=== PATIENT | female | born 1940 | race African-American/Black ===

== ENCOUNTER 2018-01-31 14:45 | Inpatient (IN) ==
[2018-01-31] MEDS ORDERED: ALBUTEROL/IPRATROPIUM 3 ML NEB RESP TX STA ×2 (16:09→17:36)
[2018-01-31] MEDS ORDERED: LEVOFLOXACIN INJ 750 MG in PREMIX 1 EACH IV STA (16:09)
[2018-01-31] MEDS ORDERED: methylPREDNISolone SOD SUC 125 MG/2 ML VIAL IV STA (16:09)
[2018-01-31] MEDS ORDERED: methylPREDNISolone SOD SUC 125 MG/2 ML VIAL ONE (16:50)
[2018-01-31] MEDS ORDERED: LEVOFLOXACIN INJ 150 ML IV ONE (16:50)
[2018-01-31 16:59] LABS: Basophils % 0.6 % (0.0-0.8); Eosinophils % 0.2 % (0.00-10.9); Hematocrit 37.8 VOL% (35.7-47.0); Hemoglobin 12.7 GM/DL (12.0-16.0); Immature Granulocytes % 0.3 %; Immature Granulocytes Absolute 0.02 #; Lymphocytes # 0.7 10*3/uL (1.4-4.0); Lymphocytes % 10.2 % (21.3-54.2); Mean Corpuscular HGB Conc 33.6 GM/DL (32-36); Mean Corpuscular Hemoglobin 30 PG (27-34); Mean Corpuscular Volume 89.4 FL (87-102); Mean Platelet Volume 9.8 FL (9.6-12.0); Monocytes # 0.3 10*3/uL (0.11-0.8); Neutrophils # 5.5 10*3/uL (1.4-7.4); Neutrophils % 83.7 % (38.7-73.9); Platelet Count 279 T/CUMM (130-400); Red Blood Count 4.23 MC/CUMM (3.8-5.5); Red Cell Distribution Width 15.9 % (9.3-17.3); White Blood Count 6.6 T/CUMM (4-12)
[2018-01-31 17:08] LABS: PT Patient Result 10.2 SECS; Partial Thromboplastin Time 26.4 SECS (0-40)
[2018-01-31 17:22] LABS: Alanine Aminotransferase 24 U/L (13-56); Albumin 3.7 G/DL (3.4-5.0); Alkaline Phosphatase 72 U/L (45-117); Aspartate Amino Transferase 23 U/L (0-37); Blood Urea Nitrogen 11 MG/DL (7-18); Calcium 9.6 MG/DL (8.5-10.1); Glucose 119 MG/DL (74-106); Osmolality,Calculated 274.7 MOS/KG (273-304); Potassium 3.9 MMOL/L (3.5-5.1); Sodium 138 MMOL/L (136-145); Total Protein 7.1 G/DL (6.4-8.3); Troponin I Only < 0.015 NG/ML (0.00-0.045)
[2018-01-31] MEDS: ALBUTEROL/IPRATROPIUM 3 ML NEB RESP TX SCH (20:12)
[2018-01-31] MEDS: ENOXAPARIN 40 MG/0.4 ML SYRINGE SUBCUT SCH (22:38)
[2018-01-31 23:36] LABS: Apearance,Urine CLEAR (Clear); Bilirubin,Urine Negative (Negative); Blood, Urine Negative (Negative); Glucose,Urine (UA) Negative (Negative); Ketones,Urine Negative (Negative); Mucus,Urine Occasional /LPF (Occasional); Nitrite,Urine Negative (Negative); Protein,Urine Negative; RBC,Urine <1 /HPF (0-4); Squamous Epithelial Cell,Urine Occasional /HPF (0-10); Urine Color Yellow (Yellow); Urine Specific Gravity 1.011 (1.001-1.035); Urine Urobilinogen < 2.0 EU/DL (0.2-1.0); WBC,Urine 2 /HPF (0-6)
[2018-01-31] MEDS: methylPREDNISolone SOD SUC 40 MG/1 ML VIAL IV SCH (23:44)
[2018-02-01] MEDS: ALBUTEROL/IPRATROPIUM 3 ML NEB RESP TX SCH ×4 (00:41→20:01)
[2018-02-01 04:35] LABS: Barbiturates Screen,Urine Negative (Negative); Benzodiazepines Screen,Urine Negative (Negative); Cannabinoid Screen,Urine Negative (Negative); Opiate Screen,Urine Positive (Negative); Phencyclidine Screen,Urine Negative (Negative)
[2018-02-01 07:04] LABS: Basophils % 0.2 % (0.0-0.8); Hematocrit 36.5 VOL% (35.7-47.0); Immature Granulocytes % 0.5 %; Immature Granulocytes Absolute 0.03 #; Lymphocytes # 0.6 10*3/uL (1.4-4.0); Lymphocytes % 9.5 % (21.3-54.2); Mean Corpuscular HGB Conc 32.9 GM/DL (32-36); Mean Corpuscular Hemoglobin 29 PG (27-34); Mean Corpuscular Volume 89.2 FL (87-102); Mean Platelet Volume 9.9 FL (9.6-12.0); Monocytes # 0.2 10*3/uL (0.11-0.8); Monocytes % 2.6 % (1.7-12.7); Neutrophils # 5.8 10*3/uL (1.4-7.4); Neutrophils % 87.2 % (38.7-73.9); Platelet Count 278 T/CUMM (130-400); Red Blood Count 4.09 MC/CUMM (3.8-5.5); Red Cell Distribution Width 15.7 % (9.3-17.3); White Blood Count 6.7 T/CUMM (4-12)
[2018-02-01 07:31] LABS: Calcium 9.2 MG/DL (8.5-10.1); Osmolality,Calculated 280.7 MOS/KG (273-304); Potassium 4.5 MMOL/L (3.5-5.1)
[2018-02-01] MEDS: NICOTINE 21 MG/24 HR PATCH TRANSDERM SCH (08:44)
[2018-02-01] MEDS: CALCIUM (CARBONATE) 500 MG TABLET PO SCH (08:44)
[2018-02-01] MEDS: MULTIVITAMIN (CENTRUM) TABLET PO SCH (08:44)
[2018-02-01] MEDS: LISINOPRIL 20 MG TABLET PO SCH (08:44)
[2018-02-01] MEDS: LETROZOLE 2.5 MG TABLET PO SCH (08:44)
[2018-02-01] MEDS: ASPIRIN EC 81 MG TABLET PO SCH (08:44)
[2018-02-01] MEDS: methylPREDNISolone SOD SUC 40 MG/1 ML VIAL IV SCH ×3 (08:45→23:49)
[2018-02-01] MEDS: amLODIPine 5 MG TABLET PO SCH (08:47)
[2018-02-01] MEDS ORDERED: LEVOFLOXACIN INJ 750 MG in PREMIX 1 EACH IV SCH (17:00)
[2018-02-01] MEDS: ENOXAPARIN 40 MG/0.4 ML SYRINGE SUBCUT SCH (21:49)
[2018-02-01] MEDS: POLYETHYLENE GLYCOL POWDER 17 GM PACK PO SCH (21:49)
[2018-02-02] MEDS: ALBUTEROL/IPRATROPIUM 3 ML NEB RESP TX SCH ×2 (01:12→07:58)
[2018-02-02 07:44] VITALS: BP 119/72
[2018-02-02] MEDS: POLYETHYLENE GLYCOL POWDER 17 GM PACK PO SCH (08:09)
[2018-02-02] MEDS: NICOTINE 21 MG/24 HR PATCH TRANSDERM SCH (08:09)
[2018-02-02] MEDS: methylPREDNISolone SOD SUC 40 MG/1 ML VIAL IV SCH (08:09)
[2018-02-02] MEDS: MULTIVITAMIN (CENTRUM) TABLET PO SCH (08:10)
[2018-02-02] MEDS: ASPIRIN EC 81 MG TABLET PO SCH (08:10)
[2018-02-02] MEDS: amLODIPine 5 MG TABLET PO SCH (08:10)
[2018-02-02] MEDS: CALCIUM (CARBONATE) 500 MG TABLET PO SCH (08:10)
[2018-02-02] MEDS: LETROZOLE 2.5 MG TABLET PO SCH (08:10)
[2018-02-02] MEDS: LISINOPRIL 20 MG TABLET PO SCH (08:10)
== END 2018-02-02 12:10 | disposition home or self-care (01) | DRG 190 ==
LOC: N.ED 14:45 → N.EDINP 20:02 → N.5E 20:41
PROVIDERS: ADMIT Internal Medicine; ATTEND Internal Medicine

== ENCOUNTER 2019-04-02 21:06 | Inpatient (IN) ==
[2019-04-02] MEDS ORDERED: methylPREDNISolone SOD SUC 125 MG/2 ML VIAL IV STA (22:31)
[2019-04-02] MEDS ORDERED: ALBUTEROL/IPRATROPIUM 3 ML NEB RESP TX STA (22:31)
[2019-04-02] MEDS ORDERED: cefTRIAXone 1,000 MG in SODIUM CHLORIDE 0.9% 100 ML IV STA (22:47)
[2019-04-02] MEDS ORDERED: AZITHROMYCIN INJ 500 MG in SODIUM CHLORIDE 0.9% 250 ML IV STA (22:48)
[2019-04-02 23:20] LABS: Basophils # 0.1 10*3/uL (0.0-0.2); Basophils % 1.2 % (0.0-0.8); Eosinophils % 0.6 % (0.00-10.9); Hematocrit 40.9 VOL% (35.7-47.0); Hemoglobin 12.9 GM/DL (12.0-16.0); Immature Granulocytes % 0.4 %; Immature Granulocytes Absolute 0.02 #; Lymphocytes # 1.1 10*3/uL (1.4-4.0); Lymphocytes % 20.3 % (21.3-54.2); Mean Corpuscular HGB Conc 31.5 GM/DL (32-36); Mean Corpuscular Volume 87.2 FL (87-102); Mean Platelet Volume 9.4 FL (9.6-12.0); Neutrophils % 67.5 % (38.7-73.9); Platelet Count 313 T/CUMM (130-400); Red Blood Count 4.69 MC/CUMM (3.8-5.5); Red Cell Distribution Width 15.3 % (9.3-17.3); White Blood Count 5.2 T/CUMM (4-12)
[2019-04-02 23:47] LABS: Bilirubin,Total 0.8 MG/DL (0.2-1.0); Calcium 9.6 MG/DL (8.5-10.1); Osmolality,Calculated 270.1 MOS/KG (273-304); Total Protein 7.6 G/DL (6.4-8.3)
[2019-04-03] MEDS ORDERED: ALBUTEROL 2.5 MG/3 ML NEB RESP TX PRN (01:47)
[2019-04-03] MEDS ORDERED: ONDANSETRON 4 MG/2 ML VIAL IV PRN (01:51)
[2019-04-03] MEDS ORDERED: ACETAMINOPHEN 325 MG TABLET PO PRN (01:51)
[2019-04-03] MEDS ORDERED: POLYETHYLENE GLYCOL POWDER 17 GM PACK PO PRN (04:39)
[2019-04-03 07:01] LABS: Basophils % 0.5 % (0.0-0.8); Hematocrit 39.1 VOL% (35.7-47.0); Hemoglobin 12.6 GM/DL (12.0-16.0); Immature Granulocytes % 0.2 %; Immature Granulocytes Absolute 0.01 #; Lymphocytes # 0.3 10*3/uL (1.4-4.0); Lymphocytes % 7.3 % (21.3-54.2); Mean Corpuscular HGB Conc 32.2 GM/DL (32-36); Mean Corpuscular Volume 86.7 FL (87-102); Mean Platelet Volume 9.7 FL (9.6-12.0); Monocytes % 1.2 % (1.7-12.7); Neutrophils % 90.8 % (38.7-73.9); Platelet Count 312 T/CUMM (130-400); Red Blood Count 4.51 MC/CUMM (3.8-5.5); Red Cell Distribution Width 15.3 % (9.3-17.3); White Blood Count 4.1 T/CUMM (4-12)
[2019-04-03 07:21] LABS: Lymphocytes 6 % (20-55); Segmented Neutrophils 93 % (50-85); Total Cells Counted 100
[2019-04-03 07:22] LABS: Hypochromasia 1+; Platelet Estimate Adequate
[2019-04-03 07:27] LABS: Calcium 8.9 MG/DL (8.5-10.1); Osmolality,Calculated 278.8 MOS/KG (273-304)
[2019-04-03] MEDS: ALBUTEROL/IPRATROPIUM 3 ML NEB RESP TX SCH ×3 (07:38→19:00)
[2019-04-03] MEDS: NICOTINE 21 MG/24 HR PATCH TRANSDERM SCH (09:43)
[2019-04-03] MEDS: DOCUSATE SODIUM 100 MG CAPSULE PO PRN (09:44)
[2019-04-03] MEDS: methylPREDNISolone SOD SUC 40 MG/1 ML VIAL IV SCH ×2 (12:38→23:01)
[2019-04-03] MEDS: cefTRIAXone 1,000 MG in SYRINGE 1 EACH IV SCH (22:58)
[2019-04-04] MEDS ORDERED: AZITHROMYCIN INJ 500 MG in SODIUM CHLORIDE 0.9% 250 ML IV SCH
[2019-04-04] MEDS: ALBUTEROL/IPRATROPIUM 3 ML NEB RESP TX SCH ×4 (00:10→18:53)
[2019-04-04 05:19] LABS: Basophils % 0.1 % (0.0-0.8); Hematocrit 33.3 VOL% (35.7-47.0); Hemoglobin 10.9 GM/DL (12.0-16.0); Immature Granulocytes % 0.4 %; Immature Granulocytes Absolute 0.03 #; Lymphocytes # 0.4 10*3/uL (1.4-4.0); Lymphocytes % 4.6 % (21.3-54.2); Mean Corpuscular HGB Conc 32.7 GM/DL (32-36); Mean Corpuscular Volume 86.7 FL (87-102); Mean Platelet Volume 9.9 FL (9.6-12.0); Monocytes % 2.5 % (1.7-12.7); Neutrophils % 92.4 % (38.7-73.9); Platelet Count 283 T/CUMM (130-400); Red Blood Count 3.84 MC/CUMM (3.8-5.5); Red Cell Distribution Width 15.4 % (9.3-17.3); White Blood Count 8.1 T/CUMM (4-12)
[2019-04-04 05:46] LABS: Calcium 8.7 MG/DL (8.5-10.1); Osmolality,Calculated 284.8 MOS/KG (273-304)
[2019-04-04 05:47] LABS: Lymphocytes 3 % (20-55); Platelet Estimate Normal; Segmented Neutrophils 94 % (50-85); Total Cells Counted 100
[2019-04-04] MEDS: NICOTINE 21 MG/24 HR PATCH TRANSDERM SCH (09:00)
[2019-04-04] MEDS: LINACLOTIDE 145 MCG CAPSULE PO SCH (09:01)
[2019-04-04] MEDS ORDERED: DEXTROSE 50% 25 GM/50 ML VIAL IV PRN (10:22)
[2019-04-04] MEDS ORDERED: GLUCAGON 1 MG VIAL IM PRN (10:22)
[2019-04-04] MEDS: PANTOPRAZOLE 40 MG TABLET PO SCH (10:51)
[2019-04-04] MEDS: LISINOPRIL 20 MG TABLET PO SCH (10:51)
[2019-04-04] MEDS: amLODIPine 5 MG TABLET PO SCH (10:51)
[2019-04-04] MEDS: LETROZOLE 2.5 MG TABLET PO SCH (10:51)
[2019-04-04] MEDS: methylPREDNISolone SOD SUC 40 MG/1 ML VIAL IV SCH ×2 (10:51→22:52)
[2019-04-04] MEDS: SODIUM CHLORIDE 0.9% 1,000 ML IV SCH (10:55)
[2019-04-04] MEDS: INSULIN REGULAR 100 UNIT/ML SUBCUT SCH ×3 (12:11→21:49)
[2019-04-04] MEDS: cefTRIAXone 1,000 MG in SYRINGE 1 EACH IV SCH (21:47)
[2019-04-04] MEDS: AZITHROMYCIN 250 MG TABLET PO SCH (21:48)
[2019-04-05] MEDS: ALBUTEROL/IPRATROPIUM 3 ML NEB RESP TX SCH ×4 (00:40→19:11)
[2019-04-05] MEDS: SODIUM CHLORIDE 0.9% 1,000 ML IV SCH (04:34)
[2019-04-05] MEDS ORDERED: ASPIRIN EC 81 MG TABLET PO SCH (09:00)
[2019-04-05] MEDS: MULTIVITAMIN (CENTRUM) TABLET PO SCH (09:04)
[2019-04-05] MEDS: LETROZOLE 2.5 MG TABLET PO SCH (09:04)
[2019-04-05] MEDS: PANTOPRAZOLE 40 MG TABLET PO SCH (09:04)
[2019-04-05] MEDS: NICOTINE 21 MG/24 HR PATCH TRANSDERM SCH (09:04)
[2019-04-05] MEDS: LISINOPRIL 20 MG TABLET PO SCH (09:04)
[2019-04-05] MEDS: amLODIPine 5 MG TABLET PO SCH (09:04)
[2019-04-05] MEDS: DOCUSATE SODIUM 100 MG CAPSULE PO PRN ×2 (09:04→22:01)
[2019-04-05] MEDS: LINACLOTIDE 145 MCG CAPSULE PO SCH (09:05)
[2019-04-05] MEDS: INSULIN REGULAR 100 UNIT/ML SUBCUT SCH ×4 (09:05→22:01)
[2019-04-05] MEDS: methylPREDNISolone SOD SUC 40 MG/1 ML VIAL IV SCH ×2 (10:08→17:01)
[2019-04-05] MEDS: DORNASE ALFA 2.5 MG/2.5 ML VIAL RESP TX SCH ×2 (10:21→19:11)
[2019-04-05] MEDS: AZITHROMYCIN 250 MG TABLET PO SCH (22:01)
[2019-04-05] MEDS: cefTRIAXone 1,000 MG in SYRINGE 1 EACH IV SCH (22:01)
[2019-04-06] MEDS: ALBUTEROL/IPRATROPIUM 3 ML NEB RESP TX SCH ×6 (00:21→23:50)
[2019-04-06] MEDS: methylPREDNISolone SOD SUC 40 MG/1 ML VIAL IV SCH ×3 (01:21→16:31)
[2019-04-06] MEDS: SODIUM CHLORIDE 0.9% 1,000 ML IV SCH ×3 (01:21→21:00)
[2019-04-06] MEDS: DORNASE ALFA 2.5 MG/2.5 ML VIAL RESP TX SCH ×3 (07:36→19:10)
[2019-04-06] MEDS: INSULIN REGULAR 100 UNIT/ML SUBCUT SCH ×4 (08:16→22:09)
[2019-04-06] MEDS: NICOTINE 21 MG/24 HR PATCH TRANSDERM SCH (09:08)
[2019-04-06] MEDS: LETROZOLE 2.5 MG TABLET PO SCH (09:08)
[2019-04-06] MEDS: LISINOPRIL 20 MG TABLET PO SCH (09:08)
[2019-04-06] MEDS: PANTOPRAZOLE 40 MG TABLET PO SCH (09:08)
[2019-04-06] MEDS: LINACLOTIDE 145 MCG CAPSULE PO SCH (09:08)
[2019-04-06] MEDS: MULTIVITAMIN (CENTRUM) TABLET PO SCH (09:08)
[2019-04-06] MEDS: amLODIPine 5 MG TABLET PO SCH (09:09)
[2019-04-06] MEDS: AZITHROMYCIN 250 MG TABLET PO SCH (22:06)
[2019-04-06] MEDS: DOCUSATE SODIUM 100 MG CAPSULE PO PRN (22:07)
[2019-04-06] MEDS: cefTRIAXone 1,000 MG in SYRINGE 1 EACH IV SCH (23:00)
[2019-04-07] MEDS: methylPREDNISolone SOD SUC 40 MG/1 ML VIAL IV SCH ×3 (00:55→18:08)
[2019-04-07] MEDS: ALBUTEROL/IPRATROPIUM 3 ML NEB RESP TX SCH ×3 (07:25→19:30)
[2019-04-07] MEDS: DORNASE ALFA 2.5 MG/2.5 ML VIAL RESP TX SCH ×2 (07:29→19:35)
[2019-04-07] MEDS: amLODIPine 5 MG TABLET PO SCH (09:03)
[2019-04-07] MEDS: NICOTINE 21 MG/24 HR PATCH TRANSDERM SCH (09:03)
[2019-04-07] MEDS: LISINOPRIL 20 MG TABLET PO SCH (09:03)
[2019-04-07] MEDS: MULTIVITAMIN (CENTRUM) TABLET PO SCH (09:03)
[2019-04-07] MEDS: LETROZOLE 2.5 MG TABLET PO SCH (09:03)
[2019-04-07] MEDS: INSULIN REGULAR 100 UNIT/ML SUBCUT SCH ×4 (09:04→21:45)
[2019-04-07] MEDS: PANTOPRAZOLE 40 MG TABLET PO SCH (09:04)
[2019-04-07] MEDS: LINACLOTIDE 145 MCG CAPSULE PO SCH (09:04)
[2019-04-07] MEDS: SODIUM CHLORIDE 0.9% 1,000 ML IV SCH (19:05)
[2019-04-07] MEDS: AZITHROMYCIN 250 MG TABLET PO SCH (21:45)
[2019-04-07] MEDS: cefTRIAXone 1,000 MG in SYRINGE 1 EACH IV SCH (21:46)
[2019-04-08] MEDS: ALBUTEROL/IPRATROPIUM 3 ML NEB RESP TX SCH ×4 (00:25→19:25)
[2019-04-08] MEDS: methylPREDNISolone SOD SUC 40 MG/1 ML VIAL IV SCH ×2 (01:15→10:20)
[2019-04-08] MEDS: LINACLOTIDE 145 MCG CAPSULE PO SCH (06:34)
[2019-04-08] MEDS: DORNASE ALFA 2.5 MG/2.5 ML VIAL RESP TX SCH ×2 (07:38→19:35)
[2019-04-08] MEDS: INSULIN REGULAR 100 UNIT/ML SUBCUT SCH ×4 (10:18→22:03)
[2019-04-08] MEDS: amLODIPine 5 MG TABLET PO SCH (10:18)
[2019-04-08] MEDS: tiZANidine 4 MG TABLET PO PRN (10:18)
[2019-04-08] MEDS: LETROZOLE 2.5 MG TABLET PO SCH (10:18)
[2019-04-08] MEDS: NICOTINE 21 MG/24 HR PATCH TRANSDERM SCH (10:19)
[2019-04-08] MEDS: LISINOPRIL 20 MG TABLET PO SCH (10:20)
[2019-04-08] MEDS: MULTIVITAMIN (CENTRUM) TABLET PO SCH (10:20)
[2019-04-08] MEDS: PANTOPRAZOLE 40 MG TABLET PO SCH (10:25)
[2019-04-08] MEDS: predniSONE 20 MG TABLET PO SCH (12:22)
[2019-04-08] MEDS: AZITHROMYCIN 250 MG TABLET PO SCH (22:02)
[2019-04-08] MEDS: cefTRIAXone 1,000 MG in SYRINGE 1 EACH IV SCH (22:23)
[2019-04-09] MEDS: ALBUTEROL/IPRATROPIUM 3 ML NEB RESP TX SCH ×2 (00:27→07:44)
[2019-04-09] MEDS: INSULIN REGULAR 100 UNIT/ML SUBCUT SCH ×2 (07:41→10:48)
[2019-04-09] MEDS: DORNASE ALFA 2.5 MG/2.5 ML VIAL RESP TX SCH (07:50)
[2019-04-09] MEDS: MULTIVITAMIN (CENTRUM) TABLET PO SCH (08:05)
[2019-04-09] MEDS: tiZANidine 4 MG TABLET PO PRN (08:05)
[2019-04-09] MEDS: LISINOPRIL 20 MG TABLET PO SCH (08:05)
[2019-04-09] MEDS: predniSONE 20 MG TABLET PO SCH (08:05)
[2019-04-09] MEDS: LETROZOLE 2.5 MG TABLET PO SCH (08:05)
[2019-04-09] MEDS: amLODIPine 5 MG TABLET PO SCH (08:05)
[2019-04-09] MEDS: NICOTINE 21 MG/24 HR PATCH TRANSDERM SCH (08:05)
[2019-04-09] MEDS: PANTOPRAZOLE 40 MG TABLET PO SCH (08:05)
[2019-04-09] MEDS: LINACLOTIDE 145 MCG CAPSULE PO SCH (08:08)
[2019-04-09 08:11] VITALS: BP 155/89
== END 2019-04-09 13:30 | disposition home health service (06) | DRG 194 ==
LOC: N.ED 21:06 → SUATTDRO 04-03 01:43 → N.EDINP 04-03 01:43 → N.5E 04-03 03:07
PROVIDERS: ADMIT Internal Medicine; ATTEND Internal Medicine

== ENCOUNTER 2019-05-26 11:39 | Inpatient (IN) ==
[2019-05-26] MEDS ORDERED: ONDANSETRON 4 MG/2 ML VIAL IV STA (12:15)
[2019-05-26] MEDS ORDERED: OXYMETAZOLINE 0.05% NASAL SPRAY 15 ML BOTTLE ONE (12:33)
[2019-05-26 12:46] LABS: Eosinophils # 0.1 10*3/uL (0.0-0.87); Eosinophils % 1.7 % (0.00-10.9); Hematocrit 35.6 VOL% (35.7-47.0); Hemoglobin 10.9 GM/DL (12.0-16.0); Lymphocytes # 0.7 10*3/uL (1.4-4.0); Lymphocytes % 15.9 % (21.3-54.2); Mean Corpuscular HGB Conc 30.6 GM/DL (32-36); Mean Corpuscular Volume 90.4 FL (87-102); Mean Platelet Volume 9.7 FL (9.6-12.0); Monocytes % 9.9 % (1.7-12.7); Neutrophils % 71.5 % (38.7-73.9); Platelet Count 268 T/CUMM (130-400); Red Blood Count 3.94 MC/CUMM (3.8-5.5); Red Cell Distribution Width 15.2 % (9.3-17.3); White Blood Count 4.2 T/CUMM (4-12)
[2019-05-26 12:54] LABS: PT Patient Result 10.7 SECS
[2019-05-26] MEDS ORDERED: methylPREDNISolone SOD SUC 125 MG/2 ML VIAL IV STA (13:04)
[2019-05-26] MEDS ORDERED: ALBUTEROL NEB SOLN 5 MG/ML 20 ML/BOTTLE CONT NEB STA (13:04)
[2019-05-26] MEDS ORDERED: MEROPENEM 1,000 MG in SODIUM CHLORIDE 0.9% 100 ML IV STA (13:04)
[2019-05-26] MEDS ORDERED: MEROPENEM 1,000 MG VIAL IV ONE (13:12)
[2019-05-26 13:18] LABS: Alanine Aminotransferase 16 U/L (13-56); Albumin 3.7 G/DL (3.4-5.0); Alkaline Phosphatase 108 U/L (45-117); Amylase 61 U/L (25-115); Aspartate Amino Transferase 17 U/L (0-37); Blood Urea Nitrogen 11 MG/DL (7-18); Calcium 9.4 MG/DL (8.5-10.1); Glucose 89 MG/DL (74-106); Osmolality,Calculated 276.4 MOS/KG (273-304); Total Protein 7.4 G/DL (6.4-8.3); Troponin I < 0.015 NG/ML (0.00-0.045)
[2019-05-26] MEDS ORDERED: ONDANSETRON 4 MG/2 ML VIAL IV PRN (14:13)
[2019-05-26] MEDS ORDERED: traZODone 50 MG TABLET PO PRN (14:13)
[2019-05-26] MEDS ORDERED: ACETAMINOPHEN 325 MG TABLET PO PRN (14:13)
[2019-05-26] MEDS ORDERED: ALBUTEROL/IPRATROPIUM 3 ML NEB RESP TX PRN (14:18)
[2019-05-26] MEDS ORDERED: ENOXAPARIN 40 MG/0.4 ML SYRINGE SUBCUT SCH (14:30)
[2019-05-26] MEDS: cefTRIAXone 1,000 MG in SYRINGE 1 EACH IV SCH (16:36)
[2019-05-26] MEDS: AZITHROMYCIN INJ 250 MG in SODIUM CHLORIDE 0.9% 250 ML IV SCH (19:20)
[2019-05-26 19:41] LABS: Apearance,Urine CLEAR (Clear); Bilirubin,Urine Negative (Negative); Blood, Urine Negative (Negative); Glucose,Urine (UA) >=500 mg/dL (Negative); Hyaline Casts,Urine 1 /LPF (0-3); Ketones,Urine 5 mg/dL (Negative); Nitrite,Urine Negative (Negative); Protein,Urine Negative; Squamous Epithelial Cell,Urine Occasional /HPF (0-10); Urine Color Yellow (Yellow); Urine Urobilinogen < 2.0 EU/DL (0.2-1.0); WBC,Urine 8 /HPF (0-6)
[2019-05-26] MEDS: ALBUTEROL/IPRATROPIUM 3 ML NEB RESP TX SCH (21:00)
[2019-05-27] MEDS: ALBUTEROL/IPRATROPIUM 3 ML NEB RESP TX SCH ×4 (01:03→19:46)
[2019-05-27 02:50] LABS: Basophils % 0.2 % (0.0-0.8); Hematocrit 31.1 VOL% (35.7-47.0); Hemoglobin 9.6 GM/DL (12.0-16.0); Immature Granulocytes % 0.2 %; Immature Granulocytes Absolute 0.01 #; Lymphocytes # 0.6 10*3/uL (1.4-4.0); Lymphocytes % 11.3 % (21.3-54.2); Mean Corpuscular HGB Conc 30.9 GM/DL (32-36); Mean Corpuscular Volume 89.1 FL (87-102); Mean Platelet Volume 10.1 FL (9.6-12.0); Monocytes % 8.8 % (1.7-12.7); Neutrophils % 79.5 % (38.7-73.9); Platelet Count 246 T/CUMM (130-400); Red Blood Count 3.49 MC/CUMM (3.8-5.5); Red Cell Distribution Width 15.1 % (9.3-17.3); White Blood Count 5.1 T/CUMM (4-12)
[2019-05-27 03:05] LABS: Calcium 8.9 MG/DL (8.5-10.1); Osmolality,Calculated 285.4 MOS/KG (273-304)
[2019-05-27] MEDS: POLYETHYLENE GLYCOL POWDER 17 GM PACK PO SCH (10:20)
[2019-05-27] MEDS: ASPIRIN EC 81 MG TABLET PO SCH (10:21)
[2019-05-27] MEDS: predniSONE 20 MG TABLET PO SCH (10:21)
[2019-05-27] MEDS: PANTOPRAZOLE 40 MG TABLET PO SCH (10:22)
[2019-05-27] MEDS: LETROZOLE 2.5 MG TABLET PO SCH (10:22)
[2019-05-27] MEDS: MULTIVITAMIN (CENTRUM) TABLET PO SCH (10:22)
[2019-05-27] MEDS: cefTRIAXone 1,000 MG in SYRINGE 1 EACH IV SCH (16:21)
[2019-05-27] MEDS: AZITHROMYCIN INJ 250 MG in SODIUM CHLORIDE 0.9% 250 ML IV SCH (16:21)
[2019-05-28] MEDS: ALBUTEROL/IPRATROPIUM 3 ML NEB RESP TX SCH ×4 (01:21→19:47)
[2019-05-28 09:30] LABS: Amylase,Body Fluid 22 U/L; Glucose,Pleural Fluid 116 MG/DL; LDH,Body Fluid 136 U/L; Total Protein,Body Fluid 3.5 G/DL; Triglycerides,Body Fluid < 14 MG/DL
[2019-05-28 09:34] LABS: Lymphocytes,Pleural Fluid 86 %; Monocytes,Pleural Fluid 6 %; Neutrophils,Pleural Fluid 8 %; RBC,Pleural Fluid 2728 T/CUMM
[2019-05-28] MEDS: predniSONE 20 MG TABLET PO SCH (09:58)
[2019-05-28] MEDS: ASPIRIN EC 81 MG TABLET PO SCH (09:58)
[2019-05-28] MEDS: MULTIVITAMIN (CENTRUM) TABLET PO SCH (09:58)
[2019-05-28] MEDS: PANTOPRAZOLE 40 MG TABLET PO SCH (09:59)
[2019-05-28] MEDS: LACTULOSE 20 GM/30 ML UDCUP PO PRN (09:59)
[2019-05-28] MEDS: DOCUSATE SODIUM 100 MG CAPSULE PO PRN (09:59)
[2019-05-28] MEDS: LETROZOLE 2.5 MG TABLET PO SCH (09:59)
[2019-05-28] MEDS: POLYETHYLENE GLYCOL POWDER 17 GM PACK PO SCH (10:00)
[2019-05-28] MEDS: cefTRIAXone 1,000 MG in SYRINGE 1 EACH IV SCH (16:21)
[2019-05-28] MEDS: AZITHROMYCIN INJ 250 MG in SODIUM CHLORIDE 0.9% 250 ML IV SCH (16:21)
[2019-05-29] MEDS: LACTULOSE 20 GM/30 ML UDCUP PO SCH ×4 (00:42→20:08)
[2019-05-29] MEDS: ALBUTEROL/IPRATROPIUM 3 ML NEB RESP TX SCH ×4 (01:13→20:04)
[2019-05-29 04:50] LABS: Basophils % 0.6 % (0.0-0.8); Eosinophils % 0.3 % (0.00-10.9); Hematocrit 31.2 VOL% (35.7-47.0); Hemoglobin 9.5 GM/DL (12.0-16.0); Immature Granulocytes % 0.4 %; Immature Granulocytes Absolute 0.03 #; Lymphocytes # 1.2 10*3/uL (1.4-4.0); Lymphocytes % 16.1 % (21.3-54.2); Mean Corpuscular HGB Conc 30.4 GM/DL (32-36); Mean Corpuscular Volume 90.2 FL (87-102); Mean Platelet Volume 10.5 FL (9.6-12.0); Monocytes % 10.1 % (1.7-12.7); Neutrophils % 72.5 % (38.7-73.9); Platelet Count 258 T/CUMM (130-400); Red Blood Count 3.46 MC/CUMM (3.8-5.5); Red Cell Distribution Width 14.9 % (9.3-17.3); White Blood Count 7.3 T/CUMM (4-12)
[2019-05-29 05:16] LABS: Calcium 8.8 MG/DL (8.5-10.1); Osmolality,Calculated 280.4 MOS/KG (273-304)
[2019-05-29] MEDS: ASPIRIN EC 81 MG TABLET PO SCH (10:12)
[2019-05-29] MEDS: LACTULOSE 20 GM/30 ML UDCUP PO PRN (10:12)
[2019-05-29] MEDS: PANTOPRAZOLE 40 MG TABLET PO SCH (10:12)
[2019-05-29] MEDS: MULTIVITAMIN (CENTRUM) TABLET PO SCH (10:13)
[2019-05-29] MEDS: LETROZOLE 2.5 MG TABLET PO SCH (10:13)
[2019-05-29] MEDS: DOCUSATE SODIUM 100 MG CAPSULE PO PRN (10:13)
[2019-05-29] MEDS: predniSONE 20 MG TABLET PO SCH (10:13)
[2019-05-29] MEDS: POLYETHYLENE GLYCOL POWDER 17 GM PACK PO SCH (10:13)
[2019-05-29] MEDS ORDERED: guaiFENesin/CODEINE 5 ML LIQUID PO PRN (10:29)
[2019-05-29 16:54] VITALS: BP 103/62
[2019-05-29] MEDS: cefTRIAXone 1,000 MG in SYRINGE 1 EACH IV SCH (17:23)
[2019-05-29] MEDS: AZITHROMYCIN INJ 250 MG in SODIUM CHLORIDE 0.9% 250 ML IV SCH (17:25)
== END 2019-05-29 19:00 | disposition home health service (06) | DRG 186 ==
LOC: N.EDINP 11:39 → N.ED 11:39 → N.4E 14:31
PROVIDERS: ADMIT Internal Medicine; ATTEND Internal Medicine